=== PATIENT | female | born 1950 | race Hispanic/Latino ===

== ENCOUNTER 2017-02-02 13:19 | Outpatient (CLI) | payer MEDICARE, MEDICAID ==
--- NOTE | 2017-02-02 14:35 | XRay Report ---
Left knee: Pain. Periarticular spurs are present involving the lateral joint compartment. There is slight if any narrowing of the lateral joint space. The articular margins are smooth. There is good alignment of the knee joint. No swelling and no effusion. The bones appear relatively well mineralized for age. Impression: Mild degenerative lateral compartment changes.
== END 2017-02-02 13:20 | disposition home or self-care (01) ==
LOC: SPVIMAG 13:19
PROVIDERS: ATTEND Orthopaedic Surgery
DX: M17.11 Unilateral primary osteoarthritis, right knee (principal)